=== PATIENT | male | born 1970 | race Caucasian/White ===

== ENCOUNTER 2021-12-21 10:31 | Emergency (ER) | payer OTHER ==
[2021-12-21 10:54] VITALS: BP 163/96; PULSE 88; RESP 18; TEMP 98.1
== END 2021-12-21 12:53 | disposition home or self-care (01) ==
LOC: JERFT 10:31
DX: R22.42 Localized swelling, mass and lump, left lower limb (principal)
CPT/HCPCS: 99283-25

== ENCOUNTER 2022-06-20 16:02 | Emergency (ER) | payer OTHER ==
[2022-06-20 16:06] VITALS: BP 142/89; PULSE 73; RESP 18; TEMP 98.6; BMI 32.8
[2022-06-20] MEDS ORDERED: IBUPROFEN 600 MG TABLET (FP) PO ONE ×2 (17:12)
== END 2022-06-20 17:20 | disposition home or self-care (01) ==
LOC: JERFT 16:02
DX: S83.92XA Sprain of unspecified site of left knee, initial encounter (principal); W10.9XXA Fall (on) (from) unspecified stairs and steps, initial encounter; X50.0XXA Overexertion from strenuous movement or load, initial encounter
CPT/HCPCS: 73562-TC-LT-FY; 99283-25

== ENCOUNTER 2024-03-25 20:43 | Emergency (ER) | payer OTHER ==
[2024-03-25 20:51] VITALS: BP 156/92; PULSE 102; RESP 16; TEMP 98.4; BMI 33.1
[2024-03-25] MEDS ORDERED: IBUPROFEN 600 MG TABLET (FP) PO ONE (22:07)
[2024-03-25] MEDS ORDERED: SULFAMETHOXAZOLE/TRIMETHOPRIM 800MG/160MG D.S. TABLET ONE (22:08)
[2024-03-25] MEDS: IBUPROFEN 600 MG TABLET (FP) PO ONE (22:09)
[2024-03-25] MEDS: SULFAMETHOXAZOLE/TRIMETHOPRIM 800MG/160MG D.S. TABLET PO ONE (22:09)
== END 2024-03-25 22:14 | disposition home or self-care (01) ==
LOC: JER 20:43
DX: L73.9 Follicular disorder, unspecified (principal)
CPT/HCPCS: 99283-25